=== PATIENT | female | born 1990 | race Caucasian/White ===

== ENCOUNTER 2016-10-31 06:51 | Emergency (ER) | payer MEDICAID ==
[~2016-10-31] VITALS: Ht 152.4 cm; Wt 48.2 kg
[2016-10-31] MEDS ORDERED: KETOROLAC 60MG/2ML VIAL IM ONE (07:30)
[2016-10-31 07:48] VITALS: BP 126/76
== END 2016-10-31 08:22 | disposition home or self-care (01) ==
LOC: ER 06:51
DX: S13.4XXA Sprain of ligaments of cervical spine, initial encounter (principal); G44.209 Tension-type headache, unspecified, not intractable; E10.9 Type 1 diabetes mellitus without complications; Z79.4 Long term (current) use of insulin; V43.52XA Car driver injured in collision with other type car in traffic accident, initial encounter; Y93.89 Activity, other specified; Y92.411 Interstate highway as the place of occurrence of the external cause
CPT/HCPCS: 81025; 82962; 96372; 99283; J1885

== ENCOUNTER 2017-01-05 13:36 | Emergency (ER) | payer MEDICAID ==
[~2017-01-05] VITALS: Ht 152.4 cm; Wt 48.0 kg
[2017-01-05] MEDS ORDERED: METF500T4 PO (13:47)
[2017-01-05 15:25] LABS: BASOPHILS % 0.5 % (0.0-2.0); EOSINOPHILS % 0.8 % (0.0-5.0); HEMATOCRIT. 34.8 % (36.0-48.0); HEMOGLOBIN. 11.8 g/dL (12.0-16.0); LYMPHOCYTES % 32.4 % (20.0-50.0); MEAN CORPUSCULAR HEMOGLOBIN 29.8 pg (28.0-32.0); MEAN CORPUSCULAR VOLUME 87.6 fL (81.0-99.0); MEAN PLATELET VOLUME 8.6 fl (7.4-10.4); NEUTROPHILS % 60.3 % (40.0-76.0); PLATELET 216 x1000/uL (130-400); PROTHROMBIN TIME 10.7 sec (9.4-11.6); RED BLOOD CELL COUNT 3.97 mill/uL (4.2-5.4); RED CELL DISTRIBUTION WIDTH 13.3 % (11.6-14.6)
[2017-01-05 15:30] LABS: CARBON DIOXIDE 30 mEq/L (21-32); CHLORIDE 104 mEq/L (98-107)
[2017-01-05 15:34] LABS: TROPONIN I < 0.02 ng/mL (0.00-0.04)
[2017-01-05 16:29] LABS: CLARITY URINE CLEAR (CLEAR); COLOR URINE YELLOW (YELLOW); GLUCOSE URINE NEGATIVE (NEGATIVE); KETONES URINE TRACE (NEGATIVE); LEUKOCYTE ESTERASE URINE NEGATIVE (NEGATIVE); NITRITE URINE NEGATIVE (NEGATIVE); OCCULT BLOOD URINE NEGATIVE (NEGATIVE); PH URINE 5.5 (4.5-8.0); PROTEIN URINE TRACE (NEGATIVE); SPECIFIC GRAVITY URINE 1.023 (1.005-1.030); UROBILINOGEN URINE 0.2 E.U./dL (0.2-1.0)
[2017-01-05 16:37] VITALS: BP 132/95
[2017-01-05 16:41] LABS: *AMPHETAMINES SCREEN URINE NEGATIVE (NEGATIVE); *BARBITURATES SCREEN URINE NEGATIVE (NEGATIVE); *BENZODIAZEPINES SCREEN URINE NEGATIVE (NEGATIVE); *COCAINE SCREEN URINE NEGATIVE (NEGATIVE); METHADONE URINE SCREEN NEGATIVE (NEGATIVE); OPIATES URINE SCREEN NEGATIVE (NEGATIVE); PHENCYCLIDINE URINE SCREEN NEGATIVE (NEGATIVE)
[2017-01-05 16:42] LABS: CANNABINOID URINE SCREEN PRESUMTIVE POSITIVE (NEGATIVE)
[2017-01-05] MEDS ORDERED: VISCOUS LIDOCAINE 2% 15 ML UDC PO STA (16:57)
[2017-01-05] MEDS ORDERED: MAGNESIUM/ALUMINUM HYDROXIDE/SIMETHICONE 30ML UDC PO STA (16:57)
[2017-01-05] MEDS ORDERED: FAMOTIDINE 20MG TABLET PO ONE (17:00)
== END 2017-01-05 18:42 | disposition home or self-care (01) ==
LOC: ER 13:46
DX: R07.89 Other chest pain (principal)
CPT/HCPCS: 36415; 71010; 80053; 80305; 81001; 81025; 84484; 85025; 85610; 93005; 99285